=== PATIENT | male | born 1990 | race Two or more races ===

== ENCOUNTER 2022-04-22 08:15 | Emergency (ER) | payer BC, OTHER ==
[~2022-04-22] VITALS: Ht 195.6 cm; Wt 106.6 kg
[2022-04-22 10:16] VITALS: BP 114/72
== END 2022-04-22 12:05 | disposition home or self-care (01) ==
LOC: ER 08:15
DX: S00.03XA Contusion of scalp, initial encounter (principal); W22.8XXA Striking against or struck by other objects, initial encounter; Y93.89 Activity, other specified; Y92.89 Other specified places as the place of occurrence of the external cause; Y99.8 Other external cause status
CPT/HCPCS: 70450; 72040